=== PATIENT | female | born 1955 | race Caucasian/White ===

== ENCOUNTER → 2017-10-18 | Outpatient (CLI) | payer MEDICARE, OTHER ==
[~2017-10-18] MED LIST: BARIUM SUSPENSION 105% (LIQUID POLIBAR PLUS) 240 ML/DOSE PO ONE; BARIUM SUSPENSION 60% (LIQUID EZ PAQUE) 240 ML DOSE PO ONE
--- NOTE | 2017-10-18 10:12 | Diagnostic Imaging Report ---
EXAMINATION: Upper GI study, double contrast. Greenhouse Grower image of the abdomen was performed. After the oral administration of gas forming granules, the patient drank thick and thin barium with visualization under fluoroscopy, with spot images taken over the esophagus, stomach and duodenum and followed by overhead images in the chest and abdomen. INDICATION: Reflux. FLUOROSCOPY TIME: One minutes and 5 seconds. FINDINGS: Greenhouse Grower images of the abdomen demonstrate moderate amount of fecal material. The esophagus demonstrates normal caliber with no strictures. The mucosal pattern demonstrates no filling defects, diverticulum or ulceration. There is normal relaxation of the distal sphincter. Minimal tertiary contractions and mild motility dysfunction is seen commonly seen at the patient's age. There is small sliding hiatal hernia. The stomach demonstrates normal distensibility with normal appearance of the mucosal folds. There are no ulcers or evidence of mass. The duodenal bulb and sweep appear normal. IMPRESSION: Sliding hiatal hernia. Minimal esophageal motility dysfunction. Dictated by: Dictated on workstation # [id number]
== END ==
LOC: RAD 08:35
PROVIDERS: ATTEND Surgery
DX: K44.9 Diaphragmatic hernia without obstruction or gangrene (principal); K21.9 Gastro-esophageal reflux disease without esophagitis
CPT/HCPCS: 74241